=== PATIENT | female | born 1960 | race Caucasian/White ===

== ENCOUNTER 2018-02-05 10:10 | Emergency (ER) | payer SELFPAY ==
[~2018-02-05] VITALS: Ht 165.1 cm; Wt 106.4 kg
[~2018-02-05 10:10] MED LIST: ASPIRIN 81 LOW81 MG; BUSPAR15 M1 PO; CEPHALEXIN500 MG PO; FLEXERIL PO; GABAPENTIN300 M2; LISINOPRIL20 M1 PO; MELOXICAM15 MG PO; NEXIUM40 M1 PO; SERTRALINE100 MG PO; TENORMIN PO; VITAMIN D400 MG PO; ZOCOR20 M1 PO
[2018-02-05] MEDS ORDERED: TORADOL PO (10:44)
[2018-02-05] MEDS ORDERED: KEFLEX500 M1 PO (10:44)
[2018-02-05] MEDS ORDERED: ERYTHROMYCIN O3.5 GM OU (10:44)
[2018-02-05] MEDS ORDERED: PERCOCET 5/325M1 TAB PO (10:44)
[2018-02-05 10:49] VITALS: BP 150/95
== END 2018-02-05 10:49 | disposition home or self-care (01) | DRG 125 ==
LOC: ED 10:10
DX: H00.022 Hordeolum internum right lower eyelid (principal); I10 Essential (primary) hypertension; M79.7 Fibromyalgia

== ENCOUNTER 2018-03-15 14:47 | Emergency (ER) | payer SELFPAY ==
[~2018-03-15] VITALS: Ht 165.1 cm; Wt 110.0 kg
[~2018-03-15 14:47] MED LIST changes: +ERYTHROMYCIN O3.5 GM OU; +KEFLEX500 M1 PO; +PERCOCET 5/325M1 TAB PO; +TORADOL PO
[2018-03-15] MEDS ORDERED: BACTRIM DS1 TAB PO (15:42)
[2018-03-15] MEDS ORDERED: CEPHALEXIN500 M1 PO (15:42)
[2018-03-15 15:48] VITALS: BP 170/76
[2018-03-16] MEDS ORDERED: BACTRIM DS1 TAB PO ×3 (16:18→16:49)
[2018-03-16] MEDS ORDERED: CEPHALEXIN500 MG PO ×3 (16:18→16:49)
== END 2018-03-15 15:52 | disposition home or self-care (01) | DRG 759 ==
LOC: ED 14:47
DX: N76.2 Acute vulvitis (principal); I10 Essential (primary) hypertension; M79.7 Fibromyalgia; B95.62 Methicillin resistant Staphylococcus aureus infection as the cause of diseases classified elsewhere

== ENCOUNTER 2018-03-16 15:42 | Emergency (ER) | payer SELFPAY ==
[~2018-03-16] VITALS: Ht 165.1 cm; Wt 103.6 kg
[~2018-03-16 15:42] MED LIST changes: +BACTRIM DS1 TAB PO; +CEPHALEXIN500 M1 PO
[2018-03-16 15:46] VITALS: BP 123/73
[2018-03-16] MEDS ORDERED: BACTRIM DS1 TAB PO ×3 (16:18→16:49)
[2018-03-16] MEDS ORDERED: CEPHALEXIN500 MG PO ×3 (16:18→16:49)
== END 2018-03-16 16:46 | disposition home or self-care (01) | DRG 759 ==
LOC: ED 15:42
DX: N76.2 Acute vulvitis (principal)

== ENCOUNTER 2018-07-03 06:49 | Day surgery (SDC) | payer BC ==
[~2018-07-03] VITALS: Ht 165.1 cm; Wt 102.1 kg
[~2018-07-03 06:49] MED LIST changes: +CYMBALTA30 MG PO
[2018-07-03 08:59] VITALS: BP 133/72
== END 2018-07-03 09:12 | disposition home or self-care (01) | DRG 951 ==
LOC: ENDO 06:49
PROVIDERS: ATTEND Surgery
PROC: 0DJD8ZZ Inspection of Lower Intestinal Tract, Via Natural or Artificial Opening Endoscopic (ICD-10-PCS; principal; 2018-07-03)
DX: Z12.11 Encounter for screening for malignant neoplasm of colon (principal); K56.609 Unspecified intestinal obstruction, unspecified as to partial versus complete obstruction; I10 Essential (primary) hypertension; F41.9 Anxiety disorder, unspecified; D17.1 Benign lipomatous neoplasm of skin and subcutaneous tissue of trunk; D17.23 Benign lipomatous neoplasm of skin and subcutaneous tissue of right leg
CPT/HCPCS: G0104

== ENCOUNTER 2018-11-15 20:29 | Emergency (ER) | payer BC ==
[~2018-11-15] VITALS: Ht 165.1 cm; Wt 90.9 kg
[2018-11-15] MEDS ORDERED: TRAZODONE50 MG PO (20:39)
[2018-11-15] MEDS ORDERED: BACTRIM DS1 TAB PO (21:00)
[2018-11-15] MEDS ORDERED: KEFLEX500 M1 PO (21:00)
[2018-11-15] MEDS ORDERED: VOLTAREN - GENE75 MG PO (21:00)
[2018-11-15 21:09] VITALS: BP 148/88
== END 2018-11-15 21:27 | disposition home or self-care (01) | DRG 759 ==
LOC: ED 20:29
DX: N76.2 Acute vulvitis (principal); I10 Essential (primary) hypertension

== ENCOUNTER 2018-12-04 19:08 | Emergency (ER) | payer BC ==
[~2018-12-04] VITALS: Ht 165.1 cm; Wt 100.0 kg
[~2018-12-04 19:08] MED LIST changes: +TRAZODONE50 MG PO; +VOLTAREN - GENE75 MG PO
[2018-12-04 21:16] LABS: HEMATOCRIT 33.6 % (37.0-47.0); IMMATURE GRANULOCYTES 0.2 % (0.0-5.0); MEAN CELL VOLUME 89.4 fL CALC (80.0-100.0); MEAN CORPUSCULAR HGB 29.8 pG CALC (26.0-32.0); MEAN CORPUSCULAR HGB CONC 33.3 g/L CALC (32.0-36.0); NEUT# 3.09 thou/uL (2.00-7.15); RED BLOOD COUNT 3.76 mill/uL (4.20-5.60); RED CELL DISTRI WIDTH 13.1 % (11.5-15.5)
[2018-12-04 21:19] LABS: HEMOGLOBIN 11.2 g/dl (12.0-16.0)
[2018-12-04 21:31] LABS: ALKALINE PHOSPHATASE 115 u/l (38-126); ANION GAP 12 (6-22 (CALC)); BILIRUBIN, TOTAL 0.3 mg/dL (0.0-1.4); BUN 27 mg/dL (7-17); BUN/CREATININE RATIO 31 (12-20 (CALC)); CARBON DIOXIDE 29 mmol/l (22-30); CHLORIDE 106 mmol/l (95-108); CREATININE 0.9 mg/dL (0.5-1.0); GFR > 60 ML/MIN (>=60 (CALC)); GFR FOR AFR.AMER. > 60 ML/MIN (>=60 (CALC)); POTASSIUM 4.1 mmol/l (3.5-5.1); SGOT/AST 29 u/l (14-36); SODIUM 143 mmol/l (137-146); TOTAL PROTEIN 6.7 g/dL (6.3-8.2)
[2018-12-04 21:39] LABS: MYOGLOBIN 33 ng/mL (0 - 62)
[2018-12-04 21:45] VITALS: BP 143/75
== END 2018-12-04 21:45 | disposition home or self-care (01) | DRG 301 ==
LOC: ED 19:08
PROVIDERS: Emergency Medicine
DX: I83.813 Varicose veins of bilateral lower extremities with pain (principal); M79.7 Fibromyalgia; I10 Essential (primary) hypertension

== ENCOUNTER 2019-01-16 18:39 | Emergency (ER) | payer BC ==
[~2019-01-16] VITALS: Ht 165.1 cm; Wt 100.0 kg
[2019-01-16] MEDS ORDERED: KEFLEX500 M1 PO (18:55)
[2019-01-16 19:18] VITALS: BP 142/79
== END 2019-01-16 19:30 | disposition home or self-care (01) | DRG 603 ==
LOC: ED 18:39
DX: L02.425 Furuncle of right lower limb (principal); I10 Essential (primary) hypertension

== ENCOUNTER 2020-03-20 10:48 | Emergency (ER) | payer BC ==
[~2020-03-20] VITALS: Ht 165.1 cm; Wt 101.0 kg
[2020-03-20] MEDS ORDERED: DICLOFENAC SODI75 MG PO (11:46)
[2020-03-20 13:34] VITALS: BP 152/86
--- NOTE | 2020-03-25 08:19 | NUR ---
Notified patient of positive Covid results. Patient denies difficulty breathing. Patient c/o congestion and loss of taste. Advised patient to quarantine until the [facility] contacts them with further instructions. Advised patient to return to ED with difficulty breathing or other urgent needs. Patient verbalized understanding.
== END 2020-03-20 13:36 | disposition home or self-care (01) | DRG 179 ==
LOC: ED 10:48
DX: U07.1 COVID-19 (principal); J06.9 Acute upper respiratory infection, unspecified; R19.7 Diarrhea, unspecified; I10 Essential (primary) hypertension

== ENCOUNTER 2021-01-30 11:24 | Emergency (ER) | payer BC ==
[~2021-01-30] VITALS: Ht 165.1 cm; Wt 73.0 kg
[~2021-01-30 11:24] MED LIST changes: +DICLOFENAC SODI75 MG PO
[2021-01-30] MEDS ORDERED: LORTAB 5/3255 MG PO (12:34)
[2021-01-30] MEDS ORDERED: PENICILLN VK500 MG PO (12:34)
[2021-01-30 13:19] VITALS: BP 180/90
== END 2021-01-30 13:29 | disposition home or self-care (01) | DRG 159 ==
LOC: ED 11:24
DX: K04.7 Periapical abscess without sinus (principal); I10 Essential (primary) hypertension; F41.9 Anxiety disorder, unspecified; F32.9 Major depressive disorder, single episode, unspecified

== ENCOUNTER 2022-04-08 14:51 | Emergency (ER) | payer BC ==
[~2022-04-08] VITALS: Ht 165.1 cm; Wt 100.0 kg
[2022-04-08] VITALS (14 sets, daily range): BP systolic 128–154; BP diastolic 64–96
[~2022-04-08 14:51] MED LIST changes: +LORTAB 5/3255 MG PO; +PENICILLN VK500 MG PO
[2022-04-08 15:27] LABS: IMMATURE GRANULOCYTES 0.7 % (0.0-5.0); MEAN CELL VOLUME 90.7 fL CALC (80.0-100.0); MEAN CORPUSCULAR HGB 29.7 pG CALC (26.0-32.0); MEAN CORPUSCULAR HGB CONC 32.8 g/dL CAL (32.0-36.0); NEUT# 4.65 thou/uL (2.00-7.15); RED BLOOD COUNT 4.64 mill/uL (4.20-5.60); RED CELL DISTRI WIDTH 12.9 % (11.5-15.5)
[2022-04-08 15:28] LABS: HEMATOCRIT 42.1 % (37.0-47.0); HEMOGLOBIN 13.8 g/dl (12.0-16.0)
[2022-04-08 15:32] LABS: ALBUMIN 4.3 g/dL (3.2-5.0); ALKALINE PHOSPHATASE 146 u/l (38-126); ANION GAP 14 (6-22 (CALC)); BILIRUBIN, TOTAL 0.4 mg/dL (0.0-1.4); BUN 19 mg/dL (7-17); BUN/CREATININE RATIO 21 (12-20 (CALC)); CARBON DIOXIDE 26 mmol/l (22-30); CHLORIDE 106 mmol/l (95-108); CREATININE 0.9 mg/dL (0.5-1.0); GFR FOR AFR.AMER. > 60 ML/MIN (>=60 (CALC)); GFR OTHER RACES > 60 ML/MIN (>=60 (CALC)); POTASSIUM 3.7 mmol/l (3.5-5.1); SGOT/AST 28 u/l (14-36); SODIUM 142 mmol/l (137-146); TOTAL PROTEIN 7.6 g/dL (6.3-8.2)
== END 2022-04-08 18:33 | disposition home or self-care (01) | DRG 923 ==
LOC: ED 14:51
PROVIDERS: Family Medicine
DX: T67.5XXA Heat exhaustion, unspecified, initial encounter (principal); I10 Essential (primary) hypertension; F41.9 Anxiety disorder, unspecified; F32.A Depression, unspecified; M79.7 Fibromyalgia; Z20.822 Contact with and (suspected) exposure to COVID-19; X30.XXXA Exposure to excessive natural heat, initial encounter

== ENCOUNTER 2023-02-10 10:39 | Observation (INO) | payer BC ==
[2023-02-10] VITALS (12 sets, daily range): BP systolic 108–148; BP diastolic 61–84
[~2023-02-10] VITALS: Ht 165.1 cm; Wt 102.4 kg
[2023-02-10 11:21] LABS: BASO% 0.7 % (0-3); EOS% 3.1 % (0-8); HEMATOCRIT 39.7 % (37.0-47.0); HEMOGLOBIN 12.8 g/dl (12.0-16.0); IMMATURE GRANULOCYTES 0.3 % (0.0-5.0); LYMPH% 40.7 % (15-41); MEAN CELL VOLUME 88.2 fL CALC (80.0-100.0); MEAN CORPUSCULAR HGB 28.4 pG CALC (26.0-32.0); MEAN CORPUSCULAR HGB CONC 32.2 g/dL CAL (32.0-36.0); MONO% 5.3 % (2-13); NEUT# 3.01 thou/uL (2.00-7.15); NEUT% 49.9 % (42-76); RED BLOOD COUNT 4.5 mill/uL (4.20-5.60); RED CELL DISTRI WIDTH 13.4 % (11.5-15.5)
[2023-02-10 11:32] LABS: ALBUMIN 4.2 g/dL (3.2-5.0); ALKALINE PHOSPHATASE 120 u/l (38-126); ANION GAP 14 (6-22 (CALC)); BILIRUBIN, TOTAL 0.4 mg/dL (0.02-1.3); BUN 19 mg/dL (7-17); BUN/CREATININE RATIO 22 (12-20 (CALC)); CHLORIDE 105 mmol/l (95-108); CREATININE 0.8 mg/dL (0.5-1.0); GFR FOR AFR.AMER. > 60 ML/MIN (>=60 (CALC)); GFR OTHER RACES > 60 ML/MIN (>=60 (CALC)); POTASSIUM 3.7 mmol/l (3.5-5.1); SGOT/AST 32 u/l (14-36); SODIUM 139 mmol/l (137-146); TOTAL PROTEIN 7.2 g/dL (6.3-8.2)
[2023-02-10 11:37] LABS: CARBON DIOXIDE 24 mmol/l (22-30)
[2023-02-10] MEDS ORDERED: PRAVASTATIN SOD10 MG PO (12:46)
[2023-02-11 03:44] VITALS: BP 102/51
[2023-02-11 04:35] VITALS: BP 102/51
[2023-02-11 06:45] VITALS: BP 116/62
[2023-02-11 06:50] LABS: CHOLESTEROL HDL RATIO 4.8 (<4.4 (CALC)); MAGNESIUM 2.2 mg/dL (1.6-2.3)
[2023-02-11 10:25] VITALS: BP 114/54
[2023-02-11] MEDS ORDERED: ASPIRIN ADULT L81 M2 PO (10:43)
== END 2023-02-11 12:12 | disposition home or self-care (01) | DRG 313 ==
LOC: ED 10:39 → ED-I 13:20 → ED 13:44 → MS2 13:45
PROVIDERS: Family Medicine; ADMIT Internal Medicine; ATTEND Internal Medicine
DX: R07.9 Chest pain, unspecified (principal); I10 Essential (primary) hypertension; E78.5 Hyperlipidemia, unspecified; M79.7 Fibromyalgia; E66.9 Obesity, unspecified; F41.9 Anxiety disorder, unspecified; F32.A Depression, unspecified
CPT/HCPCS: G0378; J1650; Q9967

== ENCOUNTER 2024-03-03 14:53 | Emergency (ER) | payer BC ==
[2024-03-03] VITALS (10 sets, daily range): BP systolic 88–145; BP diastolic 58–85
[~2024-03-03] VITALS: Ht 165.1 cm; Wt 90.7 kg
[~2024-03-03 14:53] MED LIST changes: +ALLERGY RE50 MCG/ACT; +AMLODIPINE BESY10 MG PO; +APPLE CIDER VI300 MG; +ASPIRIN ADULT L81 M2 PO; +COQ10100 MG PO; +PRAVASTATIN SOD10 MG PO
[2024-03-03] MEDS ORDERED: CYCLOBENZAPRINE HCL 5 MG TAB PO ONE (15:15)
[2024-03-03] MEDS ORDERED: KETOROLAC TROMETHAMINE 30 MG/ML SDV IM ONE (15:15)
[2024-03-03 15:55] LABS: BASO% 0.6 % (0-3); EOS% 2.2 % (0-8); HEMATOCRIT 38.7 % (37.0-47.0); HEMOGLOBIN 12.9 g/dl (12.0-16.0); IMMATURE GRANULOCYTES 0.1 % (0.0-5.0); MEAN CELL VOLUME 88.4 fL CALC (80.0-100.0); MEAN CORPUSCULAR HGB 29.5 pG CALC (26.0-32.0); MEAN CORPUSCULAR HGB CONC 33.3 g/dL CAL (32.0-36.0); MONO% 6.6 % (2-13); NEUT# 4.98 thou/uL (2.00-7.15); NEUT% 60.5 % (42-76); RED BLOOD COUNT 4.38 mill/uL (4.20-5.60)
[2024-03-03] MEDS ORDERED: MEDDOSEPAK PO (17:38)
[2024-03-03] MEDS ORDERED: NAPROXEN500 MG PO (17:38)
[2024-03-03] MEDS ORDERED: TRAMADOL HYDROC50 M1 PO (17:38)
== END 2024-03-03 17:51 | disposition home or self-care (01) | DRG 554 ==
LOC: ED 14:53
PROVIDERS: Nurse Practitioner
DX: M17.12 Unilateral primary osteoarthritis, left knee (principal); I10 Essential (primary) hypertension; M79.7 Fibromyalgia; F41.9 Anxiety disorder, unspecified; F32.A Depression, unspecified